=== PATIENT | female | born 1970 ===

== ENCOUNTER → 2021-02-01 | Day surgery (SDC) | payer OTHER ==
[~2021-02-01] VITALS: Ht 160 cm; Wt 53.5 kg
[~2021-02-01] MED LIST: AMITRIPTYLINE H10 MG PO; FLEXERIL5 MG PO; MULTIPLE VITAM1 EAC1 PO; VITAMIN B122500 MCG PO
[2021-02-01 08:08] LABS: HCT 39.5 % (37.0-47.0); MCH 31.6 pg (25.0-31.0); MCHC 32.9 g/dL (32.0-36.0); MCV 95.9 fL (78.0-100.0); MPV 10.7 fL (6.0-9.5); RBC 4.12 M/uL (4.20-5.40); RDW 13.7 % (11.5-14.0); WBC 7.6 K/uL (4.0-10.5)
[2021-02-01 08:31] LABS: ALBUMIN 3.8 g/dL (3.4-5.0); BILIRUBIN - TOTAL 0.4 mg/dL (0.2-1.0); BUN/CREAT RATIO (CALC) 21.3 RATIO; CREATININE 0.61 mg/dL (0.51-0.95); GLOBULIN (CALCULATION) 3.5 g/dL; POTASSIUM 3.4 mmol/L (3.5-5.1); TOTAL PROTEIN 7.3 g/dL (6.4-8.2)
== END | disposition home or self-care (01) ==
LOC: FAS 07:37
PROVIDERS: Surgery
DX: K29.70 Gastritis, unspecified, without bleeding (principal); K21.9 Gastro-esophageal reflux disease without esophagitis; K58.9 Irritable bowel syndrome, unspecified; K25.9 Gastric ulcer, unspecified as acute or chronic, without hemorrhage or perforation; M19.90 Unspecified osteoarthritis, unspecified site; I49.8 Other specified cardiac arrhythmias; G43.909 Migraine, unspecified, not intractable, without status migrainosus; Z88.5 Allergy status to narcotic agent; Z20.822 Contact with and (suspected) exposure to COVID-19; Z87.42 Personal history of other diseases of the female genital tract; Z87.891 Personal history of nicotine dependence; Z98.890 Other specified postprocedural states
CPT/HCPCS: 36415; 76705; 80053; J2250; J7120